=== PATIENT | female | born 1975 | race Caucasian/White ===

== ENCOUNTER 2016-12-09 17:31 | Emergency (ER) | END 2016-12-09 21:02 | disposition left against medical advice (07) | DX: Z53.21 Procedure and treatment not carried out due to patient leaving prior to being seen by health care provider (principal) ==

== ENCOUNTER 2018-04-13 11:58 | Emergency (ER) | END 2018-04-13 14:33 | disposition home or self-care (01) ==

== ENCOUNTER 2018-08-08 01:46 | Emergency (ER) | END 2018-08-08 02:05 | disposition left against medical advice (07) ==

== ENCOUNTER 2019-04-28 08:28 | Emergency (ER) | payer SELFPAY ==
[~2019-04-28] VITALS: Wt 68.6 kg
[~2019-04-28 08:28] MED LIST: NITR-58 PO
[2019-04-28 08:30] VITALS: BP 134/79; PULSE 79; RESP 18
--- NOTE | 2019-04-28 10:40 | ERD ---
ER Documentation Chief Complaint Chief Complaint frecuent urination since last night HPI 44-year-old female presenting with polyuria x2 days. She states she has had intermittent blurry vision with no headache and no vomiting over the last 2 weeks. Has not taken medications for symptoms. Denies abdominal pain or back pain. Denies fevers. Denies medical problems. NKDA. Surgical history C- section. Social history denies ROS All systems reviewed and are negative except as per history of present illness. Medications Home Meds Active Scripts Nitrofurantoin Monohyd Macrocr* (Macrobid*) 100 Mg Capsr, 100 MG PO BID for 14 Days, CAP Prov:JENN DALAL PA-C 04/28/19 Allergies Allergies: Coded Allergies: No Known Allergy (Unverified , 04/28/19) PMhx/Soc Medical and Surgical Hx: pt denies Medical Hx, pt denies Surgical Hx Hx Alcohol Use: No Hx Substance Use: No Hx Tobacco Use: No Smoking Status: Never smoker FmHx Family History: No diabetes, No coronary disease, No other Physical Exam Vitals Vital Signs Date Temp Pulse Resp B/P (MAP) Pulse Ox O2 O2 Flow FiO2 Time Delivery Rate 04/28/19 97.8 79 18 134/79 99 08:30 (97) Physical Exam GENERAL: The patient is well-appearing, well-nourished, in no acute distress HEENT: Atraumatic. Conjunctivae are pink. Pupils equal, round, and reactive to light. There is no scleral icterus. Tympanic membranes clear bilaterally. Oropharynx clear. CHEST: Clear to auscultation bilaterally. There are no rales, wheezes or rhonchi. HEART: Regular rate and rhythm. No murmurs, clicks, rubs or gallops. ABDOMEN:Soft, nontender and nondistended. Good bowel sounds. No rebound or guarding. No gross peritonitis. No gross organomegaly or masses. BACK: No midline or flank tenderness. NEUROLOGIC: Alert and oriented. Cranial nerves II through XII intact. Motor strength in all 4 extremities with 5 out of 5 strength. Sensation grossly intact. Normal speech and gait. Results 24 hrs Laboratory Tests Test 04/28/19 09:03 04/28/19 09:09 04/28/19 09:10 Bedside Glucose 124 mg/dL POC Beta HCG, Qualitative NEGATIVE Bedside Urine pH (LAB) 5.5 Bedside Urine Protein (LAB) 1+ Bedside Urine Glucose (UA) Negative Bedside Urine Ketones (LAB) Trace Bedside Urine Blood 2+ Bedside Urine Nitrite (LAB) Negative Bedside Urine Leukocyte Esterase (L 1+ Procedures/MDM MDM: 44-year-old female presenting with polyuria and occasional blurry vision. Patient's sugars are stable and does not have findings concerning for hyperglycemia or DKA. Patient does have findings consistent with possible urinary tract infection so I will treat with antibiotics. I have low suspicion for meningitis or sepsis or neuro deficit. I do not feel further blood work or imaging is indicated. Patient is discharged with strict ER precautions and told to follow-up with primary care within 1 to 2 days for close evaluation. All questions answered at discharge Departure Diagnosis: Primary Impression: Polyuria Condition: Stable Patient Instructions: Understanding Urinary Tract Infections (UTIs) Referrals: [facility] YOU HAVE RECEIVED A MEDICAL SCREENING EXAM AND THE RESULTS INDICATE THAT YOU DO NOT HAVE A CONDITION THAT REQUIRES URGENT TREATMENT IN THE EMERGENCY DEPARTMENT. FURTHER EVALUATION AND TREATMENT OF YOUR CONDITION CAN WAIT UNTIL YOU ARE SEEN IN YOUR DOCTORS OFFICE WITHIN THE NEXT 1-2 DAYS. IT IS YOUR RESPONSIBILITY TO MAKE AN APPOINTMENT FOR FOLOW-UP CARE. IF YOU HAVE A PRIMARY DOCTOR --you should call your primary doctor and schedule an appointment IF YOU DO NOT HAVE A PRIMARY DOCTOR YOU CAN CALL OUR PHYSICIAN REFERRAL HOTLINE AT IF YOU CAN NOT AFFORD TO SEE A PHYSICIAN YOU CAN CHOSE FROM THE FOLLOWING [facility] [id number] [facility]. [facility] [address] [email or web address] [facility] [address] [facility] [facility] [address] [facility]. [facility] [address] [facility]. [facility]. [address] Additional Instructions: FOLLOW UP WITH YOUR PRIMARY CARE PHYSICIAN TOMORROW.Return to this facility if you are not improving as expected. JENN DALAL PA-C Apr 28, 2019 10:40
== END 2019-04-28 09:31 | disposition home or self-care (01) ==
LOC: FTE 08:28
DX: R35.8 Other polyuria (principal)
CPT/HCPCS: 81003; 81025; 82962; 99283